=== PATIENT | male | born 1980 | race Caucasian/White ===

== ENCOUNTER 2022-07-16 12:46 | Emergency (ER) | payer OTHER, SELFPAY ==
--- NOTE | ~2022-07-16 | XR_ITS ---
EXAMINATION: XR chest 2V 07/16/2022 13:18 INDICATION: Chest pain PROCEDURE: 2 view chest COMPARISON: No prior studies for comparison. FINDINGS: The lungs are clear. The cardiomediastinal silhouette is within normal limits. There are no pleural effusions. There is no pneumothorax suspected. IMPRESSION: 1: NO ACUTE CARDIOPULMONARY DISEASE. Reviewed, dictated and finalized at location B.
[2022-07-16 12:48] VITALS: BP 142/87; PULSE 87; RESP 16; TEMP 36.6; O2SAT 100
--- NOTE | 2022-07-16 12:48 | ECG_ITS ---
Measurements Intervals [place] Rate: 74 P: 29 MI: 170 QRS: 35 QRSD: 90 T: 16 QT: 358 QTc: 400 Interpretive Statements SINUS RHYTHM BORDERLINE ST-T WAVE ABNORMALITY- INFERIOR LEADS BORDERLINE ECG NO PREVIOUS ECG AVAILABLE FOR COMPARISON Electronically Signed On 07-16-2022 13:21:58 CDT by Gwyn Farnsworth D.O.
[2022-07-16 13:07] LABS: Basophils Absolute Auto 0.1 K/mm3 (0.0-0.1); Basophils Percent Auto 0.8 % (0.2-1.2); Eosinophils Absolute Auto 0.1 K/mm3 (0-0.3); Eosinophils Percent Auto 0.8 % (0-4.4); Hematocrit 45.2 % (42.0-52.0); Hemoglobin 15.3 g/dL (14.0-18.0); Immature Granulocyte Percent A 1.1 % (0-0.5); Lymphocytes Absolute Auto 1.76 K/mm3 (0.9-3.2); Lymphocytes Percent Auto 19.8 % (18.3-44.2); Mean Corpuscular HGB Conc 33.8 g/dl (32-36); Mean Corpuscular Hemoglobin 32.6 pg (26-34); Mean Corpuscular Volume 96.4 fl (80-100); Mean Platelet Volume 9.6 fl (7.4-10.4); Monocytes Absolute Auto 0.8 K/mm3 (0.1-0.6); Monocytes Percent Auto 9.2 % (2.6-8.5); Neutrophils Absolute Auto 6.1 K/mm3 (1.3-6.7); Neutrophils Percent Auto 68.3 % (45.5-73.1); Platelet Count Result 277 k/mm3 (150-375); Red Blood Count 4.69 M/mm3 (4.6-6.20); Red Cell Distribution Width 13.1 % (11.5-14.5); White Blood Count 8.9 K/mm3 (4.5-10.0)
[2022-07-16 13:17] LABS: Alanine Aminotransferase 331 U/L (6-50); Albumin Level 4.9 g/dL (3.5-5.1); Alkaline Phosphatase 44 U/L (38-126); Anion Gap 14 mmol/L (8-16); Aspartate Amino Transferase 175 U/L (17-59); Bilirubin,Total 0.9 mg/dL (0.2-1.3); Blood Urea Nitrogen 13 mg/dL (9-20); Calcium 9.4 mg/dL (8.4-10.2); Carbon Dioxide 24 mmol/L (22-30); Chloride 101 mmol/L (98-107); Estimated CRCL calculation 139 ml/min; Estimated Glomerular Filt Rate > 60; Glucose 109 mg/dL (65-110); Lipase 71 U/L (23-300); Sodium 139 mmol/L (137-145)
[2022-07-16 13:24] LABS: INR 1.1; Prothrombin Time 13.5 Seconds (11.1-14.7)
[2022-07-16 13:25] LABS: Partial Thromboplastin Time 37.3 SECONDS (22.3-36.8)
[2022-07-16 13:29] LABS: Troponin I < 0.012 ng/mL (0.000-0.034)
--- NOTE | 2022-07-16 15:15 | ED.CHESTPAIN ---
HPI - Chest Pain General Chief Complaint: Chest Pain Stated Complaint: SOB, Anxiety, Chest Pain Time Seen by Provider: 07/16/22 14:57 History of Present Illness HPI narrative: Pt presents with intermittent CP and SOB for the last 5 days. Pt says the pain and SOB awaken him at night when he's lying down. It lasts for an hour or more and resolves on it's own. Pt has never had symptoms like this before. Pt has had a productive cough of green sputum and has been trying to quit smokeless tobacco so he started nicotine vaping and wonders if this is part of the problem. Pt has hx of htn. Related Data Allergies Allergy/AdvReac Type Severity Reaction Status Date / Time No Known Allergies Allergy Verified 07/16/22 12:48 Review of Systems Review of Systems: All systems reviewed & are unremarkable except as noted in HPI and below Exam Const: General: healthy appearing and no acute distress Nutritional Appearance: well nourished Orientation/consciousness: patient oriented x3 Limitations: no limitations Neck: Neck: normal visual inspection and no lymphadenopathy Chest: Chest palpation & inspection: normal inspection of the chest Resp: Effort & Inspection: normal respiratory effort Auscultation: clear to auscultation bilaterally Cardio: Rate: regular rate Rhythm: regular rhythm GI: Auscultation: normal bowel sounds Skin: General skin exam: normal color Rashes: no rashes Wounds: no wounds Neuro: General: patient oriented x3, moves all extremities, no meningeal signs, no focal motor deficits and CN's II-XI intact bilaterally Speech: normal speech Extrem: General: normal to inspection and no clubbing, cyanosis or edema Psych: Mental Status: mental status grossly normal Affect: normal affect Attitude: cooperative Course Vital Signs Vital signs: Vital Signs Temperature 97.9 F 07/16/22 12:48 Pulse Rate 87 07/16/22 12:48 Respiratory Rate 16 07/16/22 12:48 Blood Pressure 142/87 H 07/16/22 12:48 Pulse Oximetry 100 07/16/22 12:48 Temperature 97.9 F 07/16/22 12:48 Pulse Rate 67 07/16/22 15:29 Respiratory Rate 18 07/16/22 15:29 Blood Pressure 144/88 H 07/16/22 15:29 Pulse Oximetry 100 07/16/22 15:29 MDM - Chest Pain Lab Data Result diagrams: 07/16/22 12:59 07/16/22 12:59 Labs: Lab Results 07/16/22 07/16/22 07/16/22 Range/Units 12:59 12:59 12:59 WBC 8.9 (4.5-10.0) K/mm3 RBC 4.69 (4.6-6.20) M/mm3 Hgb 15.3 (14.0-18.0) g/dL Hct 45.2 (42.0-52.0) % MCV 96.4 (80-100) fl MCH 32.6 (26-34) pg MCHC 33.8 (32-36) g/dl RDW 13.1 (11.5-14.5) % Plt Count 277 (150-375) k/mm3 MPV 9.6 (7.4-10.4) fl Immature Gran % (Auto) 1.1 H (0-0.5) % Neut % (Auto) 68.3 (45.5-73.1) % Lymph % (Auto) 19.8 (18.3-44.2) % [place] % (Auto) 9.2 H (2.6-8.5) % Eos % (Auto) 0.8 (0-4.4) % Baso % (Auto) 0.8 (0.2-1.2) % Lymph # (Auto) 1.76 (0.9-3.2) K/mm3 [place] # (Auto) 0.8 H (0.1-0.6) K/mm3 Eos # (Auto) 0.1 (0-0.3) K/mm3 Baso # (Auto) 0.1 (0.0-0.1) K/mm3 Abs Immat Gran (auto) 0.10 H (0.00-0.031) K/mm3 Absolute Neuts (auto) 6.1 (1.3-6.7) K/mm3 Absolute Nucleated RBC 0.0 (0.0-0.012) K/mm3 Nucleated RBC % 0.0 (0.0-0.2) % PT 13.5 (11.1-14.7) Seconds INR 1.1 APTT 37.3 H (22.3-36.8) SECONDS Sodium 139 (137-145) mmol/L Potassium 4.0 (3.4-5.0) mmol/L Chloride 101 (98-107) mmol/L Carbon Dioxide 24 (22-30) mmol/L Anion Gap 14 (8-16) mmol/L BUN 13 (9-20) mg/dL Creatinine 0.90 (0.7-1.3) mg/dL Estim Creat Clear Calc 139 ml/min Estimated GFR > 60 (59 - ) Glucose 109 (65-110) mg/dL Calcium 9.4 (8.4-10.2) mg/dL Total Bilirubin 0.9 (0.2-1.3) mg/dL AST 175 H (17-59) U/L ALT 331 H (6-50) U/L Alkaline Phosphatase 44 (38-126) U/L Troponin I < 0.012 (0.000-0.034) ng/mL Total Protein 9.0 H (
[2022-07-16 15:29] VITALS: BP 144/88; PULSE 67; RESP 18; O2SAT 100
[2022-07-16 16:12] LABS: Troponin I < 0.012 ng/mL (0.000-0.034)
== END 2022-07-16 17:13 | disposition home or self-care (01) ==
PROVIDERS: Emergency Provider Emergency Medicine; PCP Internal Medicine
DX: R07.9 Chest pain, unspecified (principal); F41.9 Anxiety disorder, unspecified; R94.31 Abnormal electrocardiogram [ECG] [EKG]
CPT/HCPCS: 36415; 71046; 80053; 83690; 84484; 85025; 85610; 85730; 93005; 99284